=== PATIENT | female | born 1980 | race Caucasian/White ===

== ENCOUNTER 2023-06-28 08:26 | Outpatient (AMB) | payer OTHER, SELFPAY ==
--- NOTE | 2023-06-28 08:28 | A.OFFVIS_ITS ---
Intake Vital Signs 06/28/23 08:36 Height 5 ft 1 in Weight 189 lb 6 oz BMI 35.8 BP 140/102 H Blood Pressure Location Lt brachial Position Sitting Pulse 75 Pulse Source Pulse Oximeter Pulse Oximetry (%) 99 Oxygen Delivery Method Room Air Intake Visit Reasons: ENP-Possible Sleep Disorder/Confirmed Intake Note: NPV sleep disorder, states has a hard time falling asleep and started for Snoring Bar[employer] T[employer]er Required: No Allergies No Known Allergies Allergy (Verified 06/28/23 08:32) HPI HPI Comments History of Present Illness Details 43 y/o female patient with MS presents f or new in-person visit for sleep consultation. Pt reports difficulty falling asleep and excessive daytime sleepiness. She goes to bed at 8:30 pm but it takes about 2 hrs to fall asleep. She sleeps well, but wakes up tired and very fatigue. Pt states that she has difficulty to wake up in the morning and can sleep all day long. She is on modafinil 200 mg, but only takes 100 mg to see if the reduce dosage help her to sleep better at night. She takes modafinil 100 mg between 5:30-6 am, but feels it wear off around 8 am, and she start falling asleep from 8 am. Pt still has difficulty falling asleep. Pt reports she snores, and wt gain. She gained more than 15 lb over the last year. Sleep questionnaire: Have you ever been diagnosed with a sleep disorder? No. Have you ever had a sleep study in the past? No. Have you ever been treated for a sleep disorder? No. Do you take medications for a sleep disorder? No. Do you snore? Yes. Do you wake up gasping at night? No. Do you have episodes of apneas? No. If yes, are they witnessed? No. Do you have episodes of nocturnal chest pain or dyspnea? No. Do you have difficulty initiating sleep? Yes. Do you have difficulty maintaining sleep? No. Do you wake up tired? Yes. Do you have headaches upon awakening? Yes. Do you wake up with dry mouth or throat? Yes. Do you have GERD? No. Do you have nocturia? No. Do you have nocturnal leg cramps? Rarely. Do you have symptoms of restless legs? Not legs but arm. Do you act out your dreams? No. Sleep hygiene questionnaire: What is your usual sleep routine? Usual bedtime is at 8:30 but takes about 2 hrs to fall asleep. ; Usual wake up time is at 5 am. Do you take naps? No, but yes weekend. Is your sleep environment cool, dark, and quiet? Yes. Do you exercise? No. Do you take caffeine or other stimulants? Coffee in the morning and modafinil, ice tea in the afternoon. Do you use electronics in bed? Yes. What is your work schedule? 6:30 am-4:30 pm. Hypersomnolence questionnaire: Do you have daytime tiredness or fatigue? Yes. Do you easily fall asleep when inactive? Yes. Have you ever had episodes of sudden weakness? No. Have you ever had episodes of sudden weakness associated with strong emotions? No. PFSH Family History (Updated 06/28/23 @ 08:35 by Martina Lorenz CMA) Father Diabetes Mother Hyperlipidemia Social History (Updated 06/28/23 @ 08:36 by Martina Lorenz CMA) Alcohol intake: current Alcohol intake frequency: other Review of Systems Const All systems reviewed & are unremarkable except as noted in HPI and below ENT Reports Normal hearing present Neuro Reports Normal hearing present Physical Exam Vital Signs: Last Vital Signs Pulse 75 06/28/23 08:36 BP 140/102 H 06/28/23 08:36 Pulse Ox 99 06/28/23 08:36 Oxygen Delivery Method Room Air 06/28/23 08:36 BMI result Body Mass Index 35.8 Const General: cooperative Nutritional Appearance: obese Orientation/consciousness: patient oriented x3 HEENT Throat: Yes other (mallampati grade 4) Neck Neck: Yes full ROM and Yes supple Resp Effort & Inspection: normal respiratory effort and able to speak in complete sentences Neuro General: patient oriented x3, gait normal and moves all extremities Cranial nerves: Yes Bilaterally intact EOM present, Yes Normal facial strength present, Yes Midline tongue present, Yes Symmetric palate elevation present, Yes Normal hearing present, Yes Ability to bilaterally rotate head present and Yes Ability to bilaterally elevate shoulders present Gait exam (Neuro): Normal gait present Motor exam (neuro): 5/5 motor strength present throughout, Pronator motor function not present and no tremor noted Psych Appearance: grossly normal Mental Status: mental status grossly normal Speech and movement: Normal speech and movement present Affect: normal affect Attitude: cooperative Assessment & Plan Assessment & Plan (1) Excessive daytime sleepiness: Code(s): G47.19 - Other hypersomnia (2) Snoring: Code(s): R06.83 - Snoring Plan Pt is advised to undergo home sleep study to assess for sleep apnea. Will f/u with pt after study to discuss results and appropriate treatment options. Sleep hygiene education provided. Advised patient to reduce caffeine intake in the afternoon. Pt to call with any worsening concerns or questions. Orders: Orders RT home sleep study Today G35 - Multiple sclerosis, G47.19 - Other hypersomnia, R06.83 - Snoring Coding Level of Care Code New Pt Level 3 (46169) Diagnoses Excessive daytime sleepiness G47.19 Snoring R06.83
[2023-06-28 08:36] VITALS: BP 140/102; PULSE 75; O2SAT 99; BMI 35.8
== END 2023-06-28 09:09 | disposition home or self-care (01) ==
PROVIDERS: Visit Provider Nurse Practitioner Family
DX: G47.19 Other hypersomnia (principal); R06.83 Snoring
CPT/HCPCS: 99203

== ENCOUNTER → 2023-06-28 08:26 | Outpatient (BNVA) | payer OTHER, SELFPAY | PROVIDERS: Visit Provider Nurse Practitioner Family ==

== ENCOUNTER → 2023-09-12 11:03 | Outpatient (REF) | payer OTHER, SELFPAY | LOC: HO.SL 11:03 | PROVIDERS: PCP Internal Medicine; Visit Provider Nurse Practitioner Family | DX: G47.19 Other hypersomnia (principal); R06.83 Snoring; G35 Multiple sclerosis | CPT/HCPCS: 95806 ==

== ENCOUNTER → 2023-09-12 11:13 | Outpatient (BNV) | payer OTHER, SELFPAY | PROVIDERS: PCP Internal Medicine; Visit Provider Psychiatry & Neurology Neurology | DX: R06.83 Snoring (principal) | CPT/HCPCS: 95806 ==

== ENCOUNTER 2023-10-31 09:24 | Outpatient (AMB) | payer OTHER, SELFPAY ==
--- NOTE | 2023-10-31 09:39 | A.OFFVIS_ITS ---
Intake Vital Signs 10/31/23 09:43 Height 5 ft 1 in Weight 193 lb 4 oz BMI 36.5 BP 134/90 H Blood Pressure Location Lt brachial Position Sitting Pulse 76 Pulse Source Pulse Oximeter Pulse Oximetry (%) 99 Oxygen Delivery Method Room Air Intake Visit Reasons: 4 mo f/u - Sleep disorder - CONF w/address Intake Note: Patient presents for 4 month f/u. Allergies No Known Allergies Allergy (Verified 10/31/23 09:43) HPI HPI Comments History of Present Illness Details 43 y/o female patient with MS presents f or follow up of sleep study. The home sleep study result was normal sleep study. The AHI was 3/hr and oxygen chela was 81%. Pt reports difficulty falling asleep and daytime tiredness. She goes to bed at 8:30 pm but it takes about 2 hrs to fall asleep. She sleeps well, but wakes up tired and very fatigue. She is on modafinil 200 mg, but only takes 100 mg to see if the reduce dosage help her to sleep better at night. She takes modafinil 100 mg between 5:30-6 am, but feels it wear off around 8 am. Pt still has difficulty falling asleep. Pt reports she is in processing to separate her cat to other room when she sleep. Her cat also bother her sleep, too. Pt does not want to have repeat in-lab sleep study at this time. PFSH Family History Father Diabetes Mother Hyperlipidemia Social History Alcohol intake: current Alcohol intake frequency: other Review of Systems Const All systems reviewed & are unremarkable except as noted in HPI and below ENT Reports Normal hearing present Neuro Reports Normal hearing present Physical Exam Vital Signs: Last Vital Signs Pulse 76 10/31/23 09:43 BP 134/90 H 10/31/23 09:43 Pulse Ox 99 10/31/23 09:43 Oxygen Delivery Method Room Air 10/31/23 09:43 BMI result Body Mass Index 36.5 Const General: cooperative Nutritional Appearance: obese Orientation/consciousness: patient oriented x3 HEENT Throat: Yes other (mallampati grade 4) Neck Neck: Yes full ROM and Yes supple Resp Effort & Inspection: normal respiratory effort and able to speak in complete sentences Neuro General: patient oriented x3, gait normal and moves all extremities Cranial nerves: Yes Bilaterally intact EOM present, Yes Normal facial strength present, Yes Midline tongue present, Yes Symmetric palate elevation present, Yes Normal hearing present, Yes Ability to bilaterally rotate head present and Yes Ability to bilaterally elevate shoulders present Gait exam (Neuro): Normal gait present Motor exam (neuro): 5/5 motor strength present throughout, Pronator motor function not present and no tremor noted Psych Appearance: grossly normal Mental Status: mental status grossly normal Speech and movement: Normal speech and movement present Affect: normal affect Attitude: cooperative Assessment & Plan Assessment & Plan (1) Excessive daytime sleepiness: Code(s): G47.19 - Other hypersomnia (2) Snoring: Code(s): R06.83 - Snoring Plan Continue to practice good sleep hygiene. Advised patient to reduce caffeine intake in the afternoon. Try to do daily exercise. Pt to call with any worsening concerns or questions. Coding Level of Care Code Est Pt Level 3 (91595) Diagnoses Excessive daytime sleepiness G47.19 Snoring R06.83
[2023-10-31 09:43] VITALS: BP 134/90; PULSE 76; O2SAT 99; BMI 36.5
== END 2023-10-31 09:59 | disposition home or self-care (01) ==
PROVIDERS: Visit Provider Nurse Practitioner Family
DX: G47.19 Other hypersomnia (principal); R06.83 Snoring
CPT/HCPCS: 99213

== ENCOUNTER → 2023-10-31 09:24 | Outpatient (BNVA) | payer OTHER, SELFPAY | PROVIDERS: Visit Provider Nurse Practitioner Family ==